=== PATIENT | female | born 1985 | race Hispanic/Latino ===

== ENCOUNTER 2019-06-13 18:44 | Emergency (ER) | payer BC, SELFPAY ==
[2019-06-13 18:53] VITALS: BP 118/56; PULSE 133; RESP 22; TEMP 39.5; O2SAT 100
[2019-06-13] MEDS: ACETAMINOPHEN 500 MG TABLET 1000 MG PO (18:57)
--- NOTE | 2019-06-13 19:18 | ED.URI ---
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 Reports fever, cough, congestion and sore throat. Denies chest pain or shortness of breath. <Bekah Islas PA-C - Last Filed: 06/13/19 20:45> Related Data Allergies/Adverse Reactions: Allergies Allergy/AdvReac Type Severity Reaction Status Date / Time No Known Allergies Allergy Verified 10/19/13 12:58 <Bekah Islas PA-C - Last Filed: 06/13/19 20:45> Review of Systems Review of Systems: Narrative: CONSTITUTIONAL: Reports fever, chills ENT: Reports rhinorrhea, congestion, sore throat CARDIOVASCULAR: Denies chest pain RESPIRATORY: Reports cough. Denies dyspnea. GASTROINTESTINAL: Denies abdominal pain MUSCULOSKELETAL: Reports myalgia. <Bekah Islas PA-C - Last Filed: 06/13/19 20:45> All systems reviewed & are unremarkable except as noted in HPI and below <Bekah Islas PA-C - Last Filed: 06/13/19 20:45> [facility] Social History Social History: Social History (Updated 06/13/19 @ 19:24 by Bekah Islas PA-C) Smoking status: Never smoker Alcohol intake: former Substance use: never Gender identity (if verbalized by the patient): Female <GILMA Jain Last Filed: 06/13/19 20:45> Exam Narrative: Exam Narrative: GENERAL: Well-appearing, well-nourished, and in no acute distress. HEAD: Normocephalic, atraumatic. EYES: EOMI. ENT: Turbinates swollen and pale. Mucous membranes moist. Oropharynx without tonsillar hypertrophy exudate or other lesions. Bilateral TMs pearly bernal non-bulging NECK: Supple. No adenopathy or masses. CHEST: Clear to auscultation. No respiratory distress. No wheezes rales or rhonchi HEART: Regular rate and rhythm. No murmur heard. Normal peripheral pulses. EXTREMITIES: Normal range of motion. No edema. SKIN: Warm, dry, no rash. NEURO: No focal deficits. Alert and oriented x3. PSYCH: Normal mood and affect <GILMA Jain Last Filed: 06/13/19 20:45> Course Consultations Consultation #1: Spoke with Dr. Montalvo about patient and workup who would like patient to follow up in 1-2 days <GILMA Jain Last Filed: 06/13/19 20:45> Date: 06/13/19 <GILMA Jain Last Filed: 06/13/19 20:45> Time: 20:44 <GILMA Jain Last Filed: 06/13/19 20:45> Vital Signs Vital signs: Vital Signs Temperature 39.5 C H 06/13/19 18:53 Pulse Rate 133 H 06/13/19 18:53 Respiratory Rate 22 H 06/13/19 18:53 Blood Pressure 118/56 L 06/13/19 18:53 Pulse Oximetry 100 06/13/19 18:53 Temperature 36.9 C 06/13/19 21:00 Pulse Rate 109 H 06/13/19 21:00 Respiratory Rate 12 06/13/19 21:00 Blood Pressure 111/65 06/13/19 21:00 Pulse Oximetry 97 06/13/19 21:00 <GILMA Jain Last Filed: 06/13/19 20:45> Vital Signs Temperature 39.5 C H 06/13/19 18:53 Pulse Rate 133 H 06/13/19 18:53 Respiratory Rate 22 H 06/13/19 18:53 Blood Pressure 118/56 L 06/13/19 18:53 Pulse Oximetry 100 06/13/19 18:53 Temperature 36.9 C 06/13/19 21:00 Pulse Rate 109 H 06/13/19 21:00 Respiratory Rate 12 06/13/19 21:00 Blood Pressure 111/65 06/13/19 21:00 Pulse Oximetry 97 06/13/19 21:00 <Bree Ruelas MD - Last Filed: 06/14/19 01:25> Procedures Other Procedure Procedure 1: Other Proced
[2019-06-13] MEDS: SODIUM CHLORIDE 0.9% IV 1,000 ML 999 ML IV CONT (19:45)
[2019-06-13] MEDS: OSELTAMIVIR PHOSPHATE 75 MG CAP PO (19:45)
--- NOTE | 2019-06-13 19:47 | PC.NURSE ---
assumed care of pt at this time. report from NELY Barillas
--- NOTE | 2019-06-13 19:47 | PC.NURSE ---
Ken Godfrey monitored pt via ultrasound. baby is moving per pa
--- NOTE | 2019-06-13 19:48 | PC.NURSE ---
ob down to monitor pt via toco and baby's HR is 176
--- NOTE | 2019-06-13 20:01 | PC.NURSE ---
this rn to e.r. to monitor 2.1 week pt with decreased fm. baseline [id number] shadi mojicaied of [place]. pt to follow up in office tommorrow.
[2019-06-13 20:04] VITALS: BP 117/61; PULSE 114; RESP 20; TEMP 37.4; O2SAT 99
[2019-06-13 21:00] VITALS: BP 111/65; PULSE 109; RESP 12; TEMP 36.9; O2SAT 97
== END 2019-06-13 21:00 | disposition home or self-care (01) ==
PROVIDERS: Emergency Provider Emergency Medicine; PCP Family Medicine
DX: O99.612 Diseases of the digestive system complicating pregnancy, second trimester (principal); J10.1 Influenza due to other identified influenza virus with other respiratory manifestations; Z3A.27 27 weeks gestation of pregnancy
CPT/HCPCS: 87804; 96360; 99283; A9270; J7030

== ENCOUNTER 2019-08-27 22:27 | Inpatient (IN) | payer BC, SELFPAY ==
[2019-08-27 23:31] VITALS: BP 133/83; PULSE 93
[2019-08-28] VITALS (92 sets, daily range): BP systolic 61–149; BP diastolic 40–126; PULSE 64–284; RESP 16–18; TEMP 36.3–36.7; O2SAT 92–100; BMI 35.1
[2019-08-28] MEDS: LACTATED RINGERS 1,000 ML 125 ML IV CONT ×4 (01:07→03:09)
--- NOTE | 2019-08-28 01:10 | LDADM ---
This patient, Jovan Tanner, was admitted to Labor/Delivery/Recovery 103 on 08/27/19 at 22:27. Plans for labor, pain management and were discussed with patient. Patient/family oriented to hospital policies and general routines including ID bracelet, bed and alarms, visiting hours, pain management, procedures, bathroom and other care routines, personal items, smoking policy, room service/diet and guest tray routines, security routines, and visiting hours. Patient/Family are encouraged to report perceived risks to care and to ask questions if they do not understand what they are told or what they should do. See OBIX for further documentation.
[2019-08-28 01:11] LABS: Basophils Absolute Auto 0.1 K/mm3 (0.0-0.1); Basophils Percent Auto 0.3 % (0.2-1.2); Eosinophils Absolute Auto 0.1 K/mm3 (0-0.3); Eosinophils Percent Auto 0.8 % (0-4.4); Hematocrit 36.9 % (37.0-47.0); Hemoglobin 11.2 g/dL (12.0-15.0); Immature Granulocyte Absolute 0.13 K/mm3 (0.00-0.031); Immature Granulocyte Percent A 0.9 % (0-0.5); Immature Platelet Fraction Pct 13.5 % (0.9-11.2); Lymphocytes Percent Auto 19.3 % (18.3-44.2); Mean Corpuscular HGB Conc 30.4 g/dl (32-36); Mean Corpuscular Hemoglobin 23.5 pg (26-34); Mean Corpuscular Volume 77.4 fl (80-100); Monocytes Absolute Auto 0.8 K/mm3 (0.1-0.6); Monocytes Percent Auto 5.6 % (2.6-8.5); Neutrophils Absolute Auto 10.6 K/mm3 (1.3-6.7); Neutrophils Percent Auto 73.1 % (45.5-73.1); Nucleated Red Blood Cells Perc 0.3 % (0.0-0.2); Platelet Count Result 229 k/mm3 (150-375); Red Blood Count 4.77 M/mm3 (4.2-5.4); Red Cell Distribution Width 15.2 % (11.5-14.5); White Blood Count 14.5 K/mm3 (4.5-10.0)
--- NOTE | 2019-08-28 01:42 | WPDANESEPP ---
Anes - Eval Pre Procedure Procedure: labor epidural Date/Time: 08/28/19 01:42 Surgeon: alonzo to Pre Op Diagnosis: Contractions Patient Data Age: 34 Gender: F Height: 1.6 m Weight: 90 kg Last Vital Signs Pulse 97 08/28/19 00:01 BP 133/80 08/28/19 00:01 Allergies Allergy/AdvReac Type Severity Reaction Status Date / Time No Known Allergies Allergy Verified 10/19/13 12:58 Home Medications Medication Instructions Recorded Confirmed Type oseltamivir [Tamiflu] 75 mg PO Q12H 5 Days #10 cap 06/13/19 Rx Laboratory Tests 08/28/19 08/28/19 01:02 01:02 WBC 14.5 K/mm3 H K/mm3 (4.5-10.0) RBC 4.77 M/mm3 M/mm3 (4.2-5.4) Hgb 11.2 g/dL L g/dL (12.0-15.0) Hct 36.9 % L % (37.0-47.0) MCV 77.4 fl L fl (80-100) MCH 23.5 pg L pg (26-34) MCHC 30.4 g/dl L g/dl (32-36) RDW 15.2 % H % (11.5-14.5) Plt Count 229 k/mm3 k/mm3 (150-375) MPV 13.0 fl H fl (7.4-10.4) Immature Gran % (Auto) 0.9 % H % (0-0.5) Neut % (Auto) 73.1 % % (45.5-73.1) Lymph % (Auto) 19.3 % % (18.3-44.2) [place] % (Auto) 5.6 % % (2.6-8.5) Eos % (Auto) 0.8 % % (0-4.4) Baso % (Auto) 0.3 % % (0.2-1.2) Lymph # (Auto) 2.80 K/mm3 K/mm3 (0.9-3.2) [place] # (Auto) 0.8 K/mm3 H K/mm3 (0.1-0.6) Eos # (Auto) 0.1 K/mm3 K/mm3 (0-0.3) Baso # (Auto) 0.1 K/mm3 K/mm3 (0.0-0.1) Abs Immat Gran (auto) 0.13 K/mm3 H K/mm3 (0.00-0.031) Absolute Neuts (auto) 10.6 K/mm3 H K/mm3 (1.3-6.7) Absolute Nucleated RBC 0.0 K/mm3 K/mm3 (0.0-0.012) Nucleated RBC % 0.3 % H % (0.0-0.2) % Immature Plt Fraction 13.5 % H % (0.9-11.2) RPR Pending Patient hx anesthesia problems: none Family hx anesthesia problems: none [facility] Social History Social History (Updated 06/13/19 @ 19:24 by Bekah Islas PA-C) Smoking status: Never smoker Second hand tobacco smoke exposure: No Alcohol intake: former Substance use: never Gender identity (if verbalized by the patient): Female Spiritual care concerns: No Exam Day of Procedure 08/28/19 01:42
[2019-08-28] MEDS: PHENYLEPHRINE 1,000 MCG/10 ML SYRINGE 100 MCG IV PUSH (02:24)
[2019-08-28] MEDS: OXYTOCIN 30 UNITS/NS 500 ML 30 UNITS/500 ML BAG IV CONT (05:12)
--- NOTE | 2019-08-28 05:19 | WPDOBADMIT ---
Obstetrics - Admit Note Admission Note: record reviewed. Additions to the history and/or subsequent changes in the physical findings follow. 34 y/o at 38 weeks here with contractions. GBS neg. essentially uncomplicated. Now comfortable with epidural. SROM here at hospital. AVSS NST reactive TOCO: contractions every 2-4 min ABD soft, nontender, gravid, vertex EXT nontender Cervix C/+2 A: IUP at term with labor. P: Anticipate .
--- NOTE | 2019-08-28 05:21 | P.PCNOB_ITS ---
OB - Delivery Note Procedure Delivery date: 08/28/19 Procedure: Induction method: none Delivery monitor: external FHT and external uterine Route of delivery: Laceration description: None Specimen: Yes (cord blood) Estimated blood loss (mL): 80 Anesthesia type: Epidural Disposition: PACU Complications: None Narrative: 40 y/o at 38 weeks gestation who presented to the hospital with complaint of contractions. Labor was diagnosed. She received an epidural for pain control. Her labor progressed and her cervix dilated completely. She had SROM with clear fluid. She pushed with good effort and delivered the 's head to the perineum from JENNIE position, followed by the body. The nose and mouth were bulb suctioned. After a delay, the cord was clamped and cut. The infant was handed off the field. Cord blood was collected. The placenta delivered spontaneously and was grossly normal in appearance. The usual 3 vessel cord was noted. The perineum was intact. Needle and instrument counts were correct. The patient was taken to recovery room in stable condition. The infant went to the nursery in stable condition. I was present and scrubbed for the entire delivery. [place] Baby Date of : 08/28/19 Time of : 05:07 Weeks of gestation at delivery: 38 Infant gender: Female presentation: vertex Placenta delivery description: Spontaneous and Normal Configuration cord vessel description: 3 Vessels score one minute: 8 score five minutes: 9
--- NOTE | 2019-08-28 05:24 | P.DS_ITS ---
DS: Diagnosis Discharge Diagnosis (1) Normal delivery at term: Code(s): O80 - Encounter for full-term uncomplicated delivery Status: Acute OB - DS: Summary OB Procedures : None OB Procedures Intrapartum: Spontaneous Vag Delivery OB Procedures: : None DS: Data Data Completed and Pending Labs on day of discharge: Labs from last 24 hours 08/28/19 08/28/19 08/28/19 01:02 01:02 01:02 WBC 14.5 H RBC 4.77 Hgb 11.2 L Hct 36.9 L MCV 77.4 L MCH 23.5 L MCHC 30.4 L RDW 15.2 H Plt Count 229 MPV 13.0 H Immature Gran % (Auto) 0.9 H Neut % (Auto) 73.1 Lymph % (Auto) 19.3 [place] % (Auto) 5.6 Eos % (Auto) 0.8 Baso % (Auto) 0.3 Lymph # (Auto) 2.80 [place] # (Auto) 0.8 H Eos # (Auto) 0.1 Baso # (Auto) 0.1 Abs Immat Gran (auto) 0.13 H Absolute Neuts (auto) 10.6 H Absolute Nucleated RBC 0.0 Nucleated RBC % 0.3 H % Immature Plt Fraction 13.5 H RPR Pending Blood Type A Positive Antibody Screen Negative Discharge Plan Discharge Attending physician on discharge: Jamie Lyons Discharging Clinician: Jamie Lyons Patient Disposition: Home, Self-Care Activity: may shower, no straining and pelvic rest Diet: regular Discharge Instructions: Call or return if temperature above 100.4? F, increased abdominal pain, increased vaginal bleeding or any new problems. Stand Alone Forms: General Discharge Information Follow-up/Referrals: Jamie Lyons MD [Physician] - (6 weeks) Discharge Medications: New ibuprofen 600 mg tablet 600 mg PO Q6H PRN (Reason: cramps) Qty: 30 RF: 0 Continued 28-800 mg-mcg Tablet 1 tablet PO RF: 0 Date of admission: 08/27/19 22:27 Primary Care Provider: Ishan Kahn Admitting Provider: Jamie Lyons Attending physician on admission: Jamie Lyons
[2019-08-28] MEDS: ONDANSETRON INJ 4 MG/2 ML VIAL IV PUSH (05:46)
[2019-08-28] MEDS: OXYTOCIN 30 UNITS/NS 500 ML 30 UNITS/500 ML BAG 125 UNITS IV CONT (05:47)
[2019-08-28 06:58] LABS: Rapid Plasma Reagin Non-Reactive (NonReactive)
--- NOTE | 2019-08-28 10:30 | PC.NURSE ---
Observed mother is able to independently latch with appropriate positioning/alignment in side lying. nursed eagerly, with steady draws and frequent swallowing noted. Reviewed signs of a correct latch, effective nursing and suck swallow ratio. Infant was able to maintain latch without discomfort to mother. Nipple care reviewed. Reviewed infant feeding cues, frequencies, duration of feedings, feeding elimination flow sheet, and signs of adequate intake. Instructed mother to call out for RN assistance if she is unable to latch for feeding or she has discomfort with nursing. Instructed feeding should be initiated three hours from start of last feeding or if feeding cues are noted before. Mother voiced understanding of information shared.
[2019-08-28] MEDS: IBUPROFEN 600 MG TABLET PO (15:12)
[2019-08-29] MEDS: IBUPROFEN 600 MG TABLET PO ×2 (05:08→12:43)
[2019-08-29 05:25] LABS: Hematocrit 30.5 % (37.0-47.0); Hemoglobin 9.3 g/dL (12.0-15.0)
--- NOTE | 2019-08-29 07:09 | PM.OBPNVD ---
OB - PN: Subj Subjective Date/time seen: 08/29/19 07:09 Patient comments: no complaints and pain well controlled baby status: doing well and nursing well OB - PN: Obj Data Labs CBC & Chem 7: 08/29/19 05:10 Labs: Laboratory Results - last 24 hr 08/29/19 05:10 Hgb 9.3 L Hct 30.5 L OB - PN A/P Plan day: 1 Plan: routine care, discharge home and follow up 6 weeks Time Spent With Patient Time: Total time spent is greater than 50% in coordination of care (as documented) at patient's floor/unit and/or counseling patient: Time with patient: less than 15 minutes Review of Systems Review of Systems: All systems reviewed & are unremarkable except as noted in HPI and below Exam Const: General: no acute distress Eyes: General: appearance normal, both eyes and all related structures Neck: Neck: supple and no JVD Thyroid: thyroid normal Resp: Effort & Inspection: normal respiratory effort Auscultation: clear to auscultation bilaterally Cardio: Rate: regular rate Rhythm: regular rhythm GI: Inspection: non-distended GI Palp: Yes Soft to palpation, No Tenderness to palpation present (GI) and No Guarding due to palpation present (GI) Auscultation: normal bowel sounds : General: Yes bladder normal to palpation External Female Exam: normal external appearance Speculum Exam - Vagina: normal vaginal discharge and No vaginal bleeding Speculum Exam - Cervix: nontender Bimanual exam- vagina & uterus: bladder normal to palpation and No Cervical tenderness present OB/external & speculum: No vaginal bleeding Skin: General skin exam: no rashes or lesions noted Extrem: General: normal to inspection and no edema Psych: Mental Status: mental status grossly normal Affect: normal affect
--- NOTE | 2019-08-29 07:09 | P.DS_ITS ---
DS: Diagnosis Admitting Diagnosis Admitting Diagnosis: term DS: Summary Time Spent with Patient Time attestation: Total time spent providing and/or coordinating discharge services: Exam Const: General: no acute distress Eyes: General: appearance normal, both eyes and all related structures Neck: Neck: supple and no JVD Thyroid: thyroid normal Resp: Effort & Inspection: normal respiratory effort Auscultation: clear to auscultation bilaterally Cardio: Rate: regular rate Rhythm: regular rhythm GI: Inspection: non-distended GI Palp: Yes Soft to palpation, No Tenderness to palpation present (GI) and No Guarding due to palpation present (GI) A uscultation: normal bowel sounds : General: Yes bladder normal to palpation External Female Exam: normal external appearance Speculum Exam - Vagina: normal vaginal discharge and No vaginal bleeding Speculum Exam - Cervix: nontender Bimanual exam- vagina & uterus: bladder normal to palpation and No Cervical tenderness present OB/external & speculum: No vaginal bleeding Skin: General skin exam: no rashes or lesions noted Extrem: General: normal to inspection and no edema Psych: Mental Status: mental status grossly normal Affect: normal affect DS: Data Data Completed and Pending Labs on day of discharge: Labs from last 24 hours 08/29/19 05:10 Hgb 9.3 L Hct 30.5 L Discharge Plan Discharge Attending physician on discharge: Jamie Lyons Discharging Clinician: Jamie Lyons Patient Disposition: Home, Self-Care Activity: may shower, no straining and pelvic rest Diet: regular Discharge Instructions: Call or return if temperature above 100.4? F, increased abdominal pain, increased vaginal bleeding or any new problems. Stand Alone Forms: General Discharge Information Follow-up/Referrals: Jamie Lyons MD [Physician] - (6 weeks) Discharge Medications: New ibuprofen 600 mg tablet 600 mg PO Q6H PRN (Reason: cramps) Qty: 30 RF: 0 Continued 28-800 mg-mcg Tablet 1 tablet PO RF: 0 Date of admission: 08/27/19 22:27 Primary Care Provider: Ishan Kahn Admitting Provider: Jamie Lyons Attending physician on admission: Jamie Lyons
[2019-08-29 07:15] VITALS: BP 118/72; PULSE 100; RESP 18; TEMP 36.9; O2SAT 100
[2019-08-29] MEDS: POLYSACCHARIDE IRON COMPLEX 150 MG CAPSULE PO (08:32)
[2019-08-29] MEDS: MULTIVIT/MIN/PREN/FOL AC/IRON TABLET 1 TAB PO (08:32)
[2019-08-29] MEDS: DOCUSATE SODIUM 100 MG CAPSULE PO (08:32)
[2019-08-29] MEDS: TETANUS,DIPHTHERIA,AC PERTUSSIS ADULT (0.5 ML) BOOSTRIX IM (12:44)
[2019-08-30 09:12] VITALS: BP 105/59; PULSE 77; RESP 18; TEMP 37.3
== END 2019-08-29 13:41 | disposition home or self-care (01) | DRG 807 ==
LOC: ANHLDR 08-28 05:25 → ANHOB2 08-28 09:08
PROVIDERS: Admitting Provider Obstetrics & Gynecology; PCP Family Medicine; Visit Provider Obstetrics & Gynecology
DX: O80 Encounter for full-term uncomplicated delivery (principal); Z37.0 Single live birth; Z3A.38 38 weeks gestation of pregnancy
CPT/HCPCS: 36415; 85014; 85018; 85025; 85055; 86592; 86850; 86900; 86901; 90715; A9270; J2370; J2405; J2590; J2795; J7120

== ENCOUNTER 2021-09-26 08:12 | Outpatient (CLI) | payer BC, SELFPAY ==
--- NOTE | ~2021-09-26 | MR_ITS ---
EXAMINATION: MR brain/brain stem wo con DATE: 09/26/2021 09:20 INDICATION: pain posterior to rt eye to back of head x3wks chronic TECHNIQUE: Magnetic resonance imaging (MRI) of the brain and brainstem was performed without intraven ous contrast. Sequences included sagittal and axial T1-weighted SE, axial diffusion-weighted FS EPI A SSET, axial T2*-weighted GRE, axial T2-weighted FLAIR Propeller, and axial T2-weighted Propeller. Migue arent diffusion coefficient (ADC) maps were created. COMPARISON: None. FINDINGS: No abnormal restricted diffusion to suggest acute ischemic infarct. No MRI evidence of hemorrhage or extra-axial collection. No suspicious foci of susceptibility to suggest prior intraparenchymal hemorr nelly. No concerning white matter change. Normal parenchymal volume. Normal ventricular volume. Basal cisterns are patent. Flow voids are preserved. No abnormal signal in the aerated spaces. IMPRESSION: 1. Normal MR brain findings. Reviewed, dictated and finalized at location K.
== END 2021-09-26 08:13 ==
LOC: MICIMG 08:12
PROVIDERS: PCP Family Medicine; Visit Provider Nurse Practitioner Family
DX: R51.9 Headache, unspecified (principal)
CPT/HCPCS: 70551